=== PATIENT | male | born 1985 | race American Indian/Alaskan Native ===

== ENCOUNTER 2018-08-18 06:45 | Emergency (ER) | payer SELFPAY ==
[2018-08-18 07:17] VITALS: BP 152/80
[2018-08-18] MEDS ORDERED: TRIMOX PO ONE (07:48)
[2018-08-18] MEDS ORDERED: IBUPROFEN PO ONE (07:48)
--- NOTE | 2018-08-18 07:52 | Emergency Department Report ---
Abscess Boil HPI - HPI Chief Complaint: Skin/Abscess/Foreign Body Stated Complaint: R INDEX FINGER INFECTION Time Seen by Provider: 08/18/18 07:30 Duration: 5 Days Location: Upper Extremity Severity: Mild History: Yes Pain, Yes Purulent Drainage, No Fever, No Numbness, No Foreign Body, No Previous History, No Insect Bite HPI: Patient is a pleasant 33-year-old -[place] male who comes in with the abscess on his finger. It's consistent with a paronychia. He states that it is painful when he woke up this morning it was swollen. Patient denies any medical history. He denies taking any medications on a daily basis. He has no known allergies. His vital signs are stable and he is not febrile. Home Medications: Previous Rx's Medication Instructions Recorded Last Taken Type Amoxicillin 500 mg PO BID #20 capsule 08/18/18 Unknown Rx Naproxen [Naprosyn] 500 mg PO BID PRN #20 tablet 08/18/18 Unknown Rx Allergies/Adverse Reactions: Allergies Allergy/AdvReac Type Severity Reaction Status Date / Time No Known Allergies Allergy Unverified 08/18/18 06:48 ED Review of Systems ROS: Stated complaint: R INDEX FINGER INFECTION Other details as noted in HPI Comment: All other systems reviewed and negative Constitutional: denies: chills, fever Eyes: denies: eye pain Respiratory: denies: cough Cardiovascular: denies: palpitations Endocrine: denies: intolerance to cold Gastrointestinal: denies: nausea Musculoskeletal: denies: back pain Skin: as per HPI, lesions Neurological: denies: headache ED Past Medical Hx - Past Medical History Previous Medical History?: No - Surgical History Past Surgical History?: No - Social History Smoking Status: Never Smoker Substance Use Type: None - Medications Home Medications: Home Medications Medication Instructions Recorded Confirmed Last Taken Type Amoxicillin 500 mg PO BID #20 capsule 08/18/18 Unknown Rx Naproxen [Naprosyn] 500 mg PO BID PRN #20 tablet 08/18/18 Unknown Rx ED Abscess Boil Physical Exam - Exam General: Vital signs noted. No distress. Alert and acting appropriately. Size: 1 cm Exam: Yes Tenderness, Yes Fluctuance, Yes Normal Neurologic Exam, Yes Normal Circulation, No Surrounding Cellulites/Erythema, No Lymphangitis, No Crepitation, No Heart Murmur Exam: Paronychia of the finger. I & D Note - I & D Note I & D Note: Area was cleaned with Betadine. Abscess opened with an 18-gauge needle. Purulent drainage expressed. Dressing applied. Patient tolerated procedure well. ED Course Vital Signs 08/18/18 07:02 Temperature 98.2 F Pulse Rate 84 Respiratory 20 Rate Blood Pressure 152/80 O2 Sat by Pulse 98 Oximetry Critical care attestation.: If time is entered above; I have spent that time in minutes in the direct care of this critically ill patient, excluding procedure time. ED Medical Decision Making - Medical Decision Making Simple paronychia. Paronychia opened. We'll discharge patient on antibiotics. ED Disposition Clinical Impression: Paronychia Disposition: DC-01 TO HOME OR SELFCARE Is pt being admited?: No Does the pt Need Aspirin: No Condition: Stable Instructions: Paronychia (ED) Additional Instructions: keep clean and covered meds as ordered clean all nails supplies do not pick or bite your fingernails Referrals: RANDA JARAMILLO MD [Staff Physician] - 3-5 Days Time of Disposition: 07:50
== END 2018-08-18 08:57 | disposition home or self-care (01) ==
LOC: ED 06:45
DX: L03.011 Cellulitis of right finger (principal)

== ENCOUNTER 2018-11-27 10:26 | Emergency (ER) | payer OTHER ==
[2018-11-27 10:40] VITALS: BP 159/97
[2018-11-27 11:43] LABS: Mucus,Urine 1+ /HPF
[2018-11-27 11:44] LABS: Bilirubin,Urine NEG (Negative); Blood,Urine NEG (Negative); Color,Urine Yellow (Yellow); Protein,Urine <15 mg/dL mg/dL (Negative)
--- NOTE | 2018-11-27 13:08 | Emergency Department Report ---
ED General Adult HPI - General Chief complaint: Abdominal Pain Stated complaint: RT SIDE STOMACH PAIN Time Seen by Provider: 11/27/18 12:09 Source: patient Mode of arrival: Ambulatory Limitations: No Limitations - History of Present Illness Initial comments: Patient is a 33-year-old male who has had pain in the right flank and right back which started yesterday. Patient does do heavy lifting for living. Patient cannot remember any 1 incident that caused his pain. Patient states pain is worse with movement better with staying still. He denies any nausea vomiting diarrhea cough, congestion fevers or chills. There is no association with eating. Radiation: non-radiation Severity scale (0 -10): 6 Quality: aching - Related Data Previous Rx's Medication Instructions Recorded Last Taken Type Amoxicillin 500 mg PO BID #20 capsule 08/18/18 Unknown Rx Naproxen [Naprosyn] 500 mg PO BID PRN #20 tablet 08/18/18 Unknown Rx Ibuprofen [Motrin 800 MG tab] 800 mg PO Q8HR PRN #10 tablet 11/27/18 Unknown Rx methOCARBAMOL [Robaxin TAB] 500 mg PO Q6H PRN #14 tablet 11/27/18 Unknown Rx traMADol [Ultram] 50 mg PO Q6HR PRN #12 tablet 11/27/18 Unknown Rx Allergies Allergy/AdvReac Type Severity Reaction Status Date / Time No Known Allergies Allergy Verified 11/27/18 10:28 ED Review of Systems ROS: Stated complaint: RT SIDE STOMACH PAIN Other details as noted in HPI Comment: All other systems reviewed and negative ED Past Medical Hx - Past Medical History Previous Medical History?: No - Surgical History Past Surgical History?: Yes Additional Surgical History: RIGHT HAND SURGERY - Social History Smoking Status: Never Smoker Substance Use Type: None - Medications Home Medications: Home Medications Medication Instructions Recorded Confirmed Last Taken Type Amoxicillin 500 mg PO BID #20 capsule 08/18/18 Unknown Rx Naproxen [Naprosyn] 500 mg PO BID PRN #20 tablet 08/18/18 Unknown Rx Ibuprofen [Motrin 800 MG tab] 800 mg PO Q8HR PRN #10 tablet 11/27/18 Unknown Rx methOCARBAMOL [Robaxin TAB] 500 mg PO Q6H PRN #14 tablet 11/27/18 Unknown Rx traMADol [Ultram] 50 mg PO Q6HR PRN #12 tablet 11/27/18 Unknown Rx ED Physical Exam - General Limitations: No Limitations General appearance: alert, in no apparent distress - Head Head exam: Present: atraumatic, normocephalic - Eye Eye exam: Present: normal appearance - ENT ENT exam: Present: mucous membranes moist - Neck Neck exam: Present: normal inspection - Respiratory Respiratory exam: Present: normal lung sounds bilaterally. Absent: respiratory distress, wheezes, rales, rhonchi - Cardiovascular Cardiovascular Exam: Present: regular rate, normal rhythm. Absent: systolic murmur, diastolic murmur, rubs, gallop - GI/Abdominal GI/Abdominal exam: Present: soft, tenderness (patient has some tenderness to the right flank area.), normal bowel sounds. Absent: distended, guarding, rebound, rigid - Rectal Rectal exam: Present: deferred - Extremities Exam Extremities exam: Present: normal inspection - Back Exam Back exam: Present: normal inspection - Neurological Exam Neurological exam: Present: alert, oriented X3 - Psychiatric Psychiatric exam: Present: normal affect, normal mood - Skin Skin exam: Present: warm, dry, intact, normal color. Absent: rash ED Course Vital Signs 11/27/18 10:37 Temperature 98.7 F Pulse Rate 82 Respiratory 16 Rate Blood Pressure 159/97 O2 Sat by Pulse 97 Oximetry ED Medical Decision Making - Lab Data Lab Results 11/27/18 Range/Units Unknown Urine Color Yellow (Yellow) Urine Turbidity Hazy (Clear) Urine pH 7.0 (5.0-7.0) Ur Specific [place] 1.020 (1.003-1.030) Urine Protein <15 mg/dl (Negative) mg/dL Urine Glucose (UA) Neg (Negative) mg/dL Urine Ketones Neg (Negative) mg/dL Urine Blood Neg (Negative) Urine Nitrite Neg (Negative) Ur Reducing Substances Not Reportable Urine Bilirubin Neg (Negative) Urine Ictotest Not Reportable Urine Urobilinogen 2.0 (<2.0) mg/dL Ur Leukocyte Esterase Neg (Negative) Urine WBC (Auto) 1.0 (0.0-6.0) /HPF Urine RBC (Auto) 2.0 (0.0-6.0) /HPF U Epithel Cells (Auto) 5.0 (0-13.0) /HPF Urine Mucus 1+ /HPF - Medical Decision Making Patient has no nausea vomiting diarrhea fevers or hematuria on examination of his urinalysis. Patient likely with multiple skeletal pain secondary to lifting at his job. Patient started on this symptomatic relief be discharged home. Critical care attestation.: If time is entered above; I have spent that time in minutes in the direct care of this critically ill patient, excluding procedure time. ED Disposition Clinical Impression: Muscular abdominal pain in right flank Disposition: DC-01 TO HOME OR SELFCARE Is pt being admited?: No Does the pt Need Aspirin: No Condition: Stable Instructions: Musculoskeletal Pain (ED) Referrals: LINCOLN KENT MD [Primary Care Provider] - 3-5 Days Time of Disposition: 13:07
== END 2018-11-27 13:23 | disposition home or self-care (01) ==
LOC: ED 10:26
DX: M79.18 Myalgia, other site (principal)
CPT/HCPCS: 81001; 99283